=== PATIENT | male | born 1975 | race Caucasian/White ===

== ENCOUNTER → 2020-05-22 | Outpatient (CLI) | payer OTHER ==
--- NOTE | 2020-05-22 13:29 | US ---
EXAM DESCRIPTION: Venous,Lower Extremity LT: ULTRASOUND. CLINICAL HISTORY: pain in left leg. DVT in the left popliteal vein 2018. COMPARISON: Prior images not available. TECHNIQUE: Jean-scale and doppler sonographic evaluation of the deep venous system of the left lower extremity. FINDINGS: Doppler evaluation shows decreased color flow in the left posterior tibial vein with no phasicity or augmentation. Grayscale images show echogenic thrombus in the vein and the vein is not compressible. Normal color flow and normal phasicity and augmentation of the left common femoral vein, left femoral vein, popliteal vein, left greater saphenous vein, junction with the CFV. Also normal color flow and normal phasicity and augmentation of the left peroneal, The left lower extremity deep veins were completely compressible; normal occlusion with transducer pressure. Jean-scale survey showed no echogenic thrombus within these veins. IMPRESSION: 1. Duplex ultrasound evaluation of the left lower extremity deep venous system showing thrombosis in the left posterior tibial vein. No thrombosis in the left popliteal vein. 2. Remaining deep veins of the left lower extremity are unremarkable. CRITICAL COMMUNICATION: The critical value was communicated directly by Dr. Gay via phone call, with Dr. Tomer Mcgregor, at approximately 1315 hours, on May 22, 2020. Electronically signed by: Kunal Gay MD 05/22/2020 1:27 PM CDT
== END ==
LOC: US 11:57
PROVIDERS: ATTEND Family Medicine Sports Medicine
DX: I82.442 Acute embolism and thrombosis of left tibial vein (principal)